=== PATIENT | female | born 1990 ===

== ENCOUNTER 2025-06-16 00:42 | Inpatient (IN) | payer BC ==
[2025-06-16] MEDS ORDERED: hydrALAZINE 20 MG/ML VIAL SLOW IVP PRN (00:58)
[2025-06-16] MEDS ORDERED: Tranexamic Acid 1,000 MG/10 ML VIAL IVP PRN (00:58)
[2025-06-16] MEDS ORDERED: Lidocaine 1% (PF) 30 ML VIAL SC PRN (00:58)
[2025-06-16] MEDS ORDERED: Diphenoxylate HCl/Atropine Tablet PO PRN ×2 (00:58)
[2025-06-16] MEDS ORDERED: Ondansetron PF 4 MG/2 ML Vial IVP PRN ×2 (00:58→01:48)
[2025-06-16] MEDS ORDERED: Methylergonovine 0.2 MG/ML VIAL IM PRN (00:58)
[2025-06-16] MEDS ORDERED: Carboprost 250 MCG/ML AMP IM PRN (00:58)
[2025-06-16] MEDS ORDERED: Oxytocin 30 units/NS 500 ML 500 ML IV SCH (01:00)
[2025-06-16 01:18] LABS: Hematocrit 40.8 % (34.9-44.5); Hemoglobin 13.7 g/dL (12.0-15.5); Mean Corpuscular Hemoglobin 29.7 pg (27.0-33.0); Mean Corpuscular Volume 88.3 fL (81.6-98.3); Platelet Count 242 10x3/uL (150-450); Red Blood Cell (RBC) Count 4.62 10x6/uL (3.90-5.03); White Blood Cell (WBC) Count 16.58 10x3/uL (3.5-10.5)
[2025-06-16 01:25] VITALS: BMI 24.1
[2025-06-16] MEDS: fentaNYL/Ropivacaine Epidural 100 ML ONE (01:34)
[2025-06-16] MEDS ORDERED: diphenhydrAMINE 50 MG/ML VIAL IVP PRN (01:48)
[2025-06-16] MEDS ORDERED: Acetaminophen 325 MG TAB PO PRN (01:48)
[2025-06-16 01:52] LABS: Hep B Surf Ag - L&D Non-Reactive S/CO (NonReactive)
[2025-06-16 01:53] LABS: Syphilis Antibody Index 0.10 S/CO (<1.00 Non-Reactive)
[2025-06-16] MEDS ORDERED: Communication Order-Pharmacy FS SCH (02:00)
[2025-06-16] MEDS ORDERED: fentaNYL 2 mcg/Ropivacaine 0.2% Epidural 100 ML CADD EPIDURAL SCH (02:00)
[2025-06-16] MEDS: Oxytocin 30 units/NS 500 ML 500 ML IV SCH (02:24)
[2025-06-16] MEDS ORDERED: Benzocaine-Menthol 82.5 ML CAN TOP PRN (03:16)
[2025-06-16] MEDS ORDERED: Bisacodyl 10 MG SUPP PR PRN (03:16)
[2025-06-16] MEDS ORDERED: diphenhydrAMINE 25 MG CAP PO PRN (03:16)
[2025-06-16] MEDS ORDERED: Lanolin Ointment 7 GM TUBE TOP PRN (03:16)
[2025-06-16] MEDS ORDERED: Boostrix 0.5 ML (Tdap) VIAL (>/=7 yrs of age) IM ONE (03:16)
[2025-06-16] MEDS ORDERED: Preparation H Ointment 28 GM TUBE PR PRN (03:16)
[2025-06-16] MEDS ORDERED: Milk Of Magnesia 30 ML UDCUP PO PRN (03:16)
[2025-06-16] MEDS: Ibuprofen 800 MG TAB PO PRN (03:21)
[2025-06-16] MEDS: Carboprost 250 MCG/ML AMP ONE (03:50)
[2025-06-16] MEDS: Tranexamic Acid 1,000 MG/10 ML VIAL ONE (03:50)
[2025-06-16] MEDS: Methylergonovine 0.2 MG/ML VIAL ONE (03:51)
[2025-06-16 06:01] LABS: Hematocrit 33.1 % (34.9-44.5); Hemoglobin 11.2 g/dL (12.0-15.5)
[2025-06-16] MEDS: Acetaminophen 500 MG TAB PO PRN (06:29)
[2025-06-16] MEDS: Ferrous Sulfate 325 MG TAB PO SCH (08:15)
[2025-06-16] MEDS: Ibuprofen 800 MG TAB PO SCH (10:39)
[2025-06-16] MEDS: HYDROcodone/Acetaminophen 5/325 mg Tablet PO PRN (20:18)
[2025-06-17] MEDS: Oxytocin 30 units/NS 500 ML 500 ML ONE (00:58)
[2025-06-17 09:15] VITALS: BP 116/69; TEMP 97.8
== END 2025-06-17 15:25 | disposition home or self-care (01) | DRG 807 ==
LOC: CSHLD/OP 00:42 → CSHLD 01:09 → CSHPP 04:45
PROVIDERS: ADMIT Student in an Organized Health Care Education/Training Program; ATTEND Student in an Organized Health Care Education/Training Program
PROC: 10E0XZZ Delivery of Products of Conception, External Approach (ICD-10-PCS; principal; 2025-06-16)
PROC: 0KQM0ZZ Repair Perineum Muscle, Open Approach (ICD-10-PCS; 2025-06-16)
DX: O48.0 Post-term pregnancy (principal); Z37.0 Single live birth; Z3A.40 40 weeks gestation of pregnancy; O99.345 Other mental disorders complicating the puerperium; F53.0 Postpartum depression; O70.1 Second degree perineal laceration during delivery
CPT/HCPCS: 85027; 86780; 86850; 86900; 86901; 87340; 99285; J0665; J2210; J2590; J3490